=== PATIENT | male | born 1935 | race Caucasian/White ===

== ENCOUNTER 2016-07-24 19:14 | Emergency (ER) | payer OTHER ==
[~2016-07-24] VITALS: Ht 172.7 cm; Wt 81.4 kg
[~2016-07-24 19:14] MED LIST: ACCUPRIL40 MG PO; AMARYL1 MG PO; AMLODIPINE BESY10 MG PO; ASPIR 8181 M1 PO; B COMPLETE1 EACH PO; CELEXA20 MG PO; DICYCLOMINE HCL10 MG PO; DYAZIDE, MA1 CAPSULE PO; FLOMAX0.4 MG PO; FLOVENT 11120 INHALA IH; GEMFIBROZIL600 MG PO; HALOBETASOL PRO15 GM TP; LIPITOR40 MG PO; LIPITOR80 MG PO; METFORMIN HCL500 MG PO; MIRALAX17 GM PO; NAMENDA10 MG PO; NORVASC5 MG PO; NOVOLOG PE100 UNITS/ SC; PATANOL OP100 DROP/5 BOTH EYES; PRILOSEC20 MG PO; PROAIR HFA8.5 GM IH; PROVENTIL,2.5 MG/3 M IH; RAPAFLO8 MG PO; RIVASTIGMINE3 MG PO; ROBITUSSIN NIG118 ML PO; TESSALON PERLE100 MG PO; TYLENOL REGULA325 MG PO; ULTRAVATE PO; VENTOLIN HFA18 GM IH; VITAMIN D-32000 UNI2 PO; ZITHROMAX Z-PA250 MG PO; ZOFRAN8 MG PO
[2016-07-24] MEDS ORDERED: PREDNISONE20 MG PO (22:59)
[2016-07-24 23:23] VITALS: BP 135/74
== END 2016-07-24 23:21 | disposition home or self-care (01) ==
LOC: EME 19:14
PROC: 09Q0XZZ Repair Right External Ear, External Approach (ICD-10-PCS; principal; 2016-07-24)
DX: S09.90XA Unspecified injury of head, initial encounter (principal); J44.1 Chronic obstructive pulmonary disease with (acute) exacerbation; S01.311A Laceration without foreign body of right ear, initial encounter; W05.0XXA Fall from non-moving wheelchair, initial encounter; F03.90 Unspecified dementia, unspecified severity, without behavioral disturbance, psychotic disturbance, mood disturbance, and anxiety; E11.9 Type 2 diabetes mellitus without complications; E78.5 Hyperlipidemia, unspecified; I10 Essential (primary) hypertension; K21.9 Gastro-esophageal reflux disease without esophagitis; Z85.820 Personal history of malignant melanoma of skin
CPT/HCPCS: 70450; 71020; 94640; 99281; 99285; J7512

== ENCOUNTER 2017-04-29 20:12 | Emergency (ER) | payer OTHER ==
[~2017-04-29] VITALS: Ht 180.3 cm; Wt 83.8 kg
[~2017-04-29 20:12] MED LIST changes: +PREDNISONE20 MG PO
[2017-04-29 21:09] LABS: BASOPHIL (%) 0.8 % (0-1); BASOPHIL COUNT 0.1 K/uL (0-0.1); EOSINOPHIL (%) 6.2 % (0-5); EOSINOPHIL COUNT 0.5 K/uL (0-0.3); HEMATOCRIT 41.1 % (38.0-50.0); HEMOGLOBIN 14.4 G/DL (12.5-16.6); IMMATURE GRANULOCYTE (%) 1.1 % (0.0-0.7); LYMPHOCYTE (%) 18.8 % (15-42); LYMPHOCYTE COUNT 1.4 K/uL (1.0-2.8); MCH 32.4 PG (29.0-34.0); MCV 92.4 FL (86-99); MONOCYTE (%) 5.6 % (3-12); MONOCYTE COUNT 0.4 K/uL (0-0.8); NEUTROPHIL (%) 67.5 % (45-76); NEUTROPHIL COUNT 5.1 K/uL (1.8-6.4); PLATELET COUNT 174 K/uL (156-360); RBC DIS.WIDTH-SD 41.1 % (39-53); RED BLOOD COUNT 4.45 M/uL (4.00-5.50); WHITE BLOOD COUNT 7.6 K/uL (4.1-10.2)
[2017-04-29 21:14] LABS: CHLORIDE 99 mEq/L (99-109); POTASSIUM 4.1 mEq/L (3.7-5.4); SODIUM 133 mEq/L (136-147)
[2017-04-29 21:15] LABS: GLUCOSE 160 mg/dL (70-99)
[2017-04-29 21:19] LABS: CREATININE 1.1 mg/dL (0.6-1.3); GFR ESTIMATE (CALCULATED) > 59 mL/min/ (58.99-99999); PTT 24.9 SEC (25-37)
[2017-04-29 21:20] LABS: UREA NITROGEN (BUN) 20 mg/dL (9-23)
[2017-04-29 21:26] LABS: TROP-I INTERPRETATION NEGATIVE; TROPONIN-I < 0.01 ng/mL (0.0-0.30)
[2017-04-29 21:51] LABS: APPEARANCE SL.HAZY ((CLEAR)); BILIRUBIN NEGATIVE; BLOOD NEGATIVE; COLOR YELLOW ((YELLOW)); GLUCOSE (STRIP) >=500; KETONES NEGATIVE; LEUKOCYTES NEGATIVE; NITRITE NEGATIVE; PROTEIN (STRIP) 30; SPECIFIC GRAVITY 1.014 (1.000-1.030); UROBILINOGEN 0.2 MG/DL (0.2-1.0)
[2017-04-29 21:55] LABS: BACTERIA NONE SEEN /HPF; EPITHELIAL CELLS RARE /HPF; MUCUS TRACE /LPF; RED BLOOD CELLS 0-5 /HPF (0-5); UCUL ADDED? NO; WHITE BLOOD CELLS 0-5 /HPF (0-5)
[2017-04-29 23:58] VITALS: BP 117/85
== END 2017-04-29 23:58 | disposition home or self-care (01) ==
LOC: EME → EDBD 20:12 → EME 20:12
PROVIDERS: Emergency Medicine
DX: R56.9 Unspecified convulsions (principal); F03.90 Unspecified dementia, unspecified severity, without behavioral disturbance, psychotic disturbance, mood disturbance, and anxiety; K21.9 Gastro-esophageal reflux disease without esophagitis; I10 Essential (primary) hypertension; E11.9 Type 2 diabetes mellitus without complications; E78.5 Hyperlipidemia, unspecified; J45.909 Unspecified asthma, uncomplicated; Z79.84 Long term (current) use of oral hypoglycemic drugs; Z79.82 Long term (current) use of aspirin; Z85.820 Personal history of malignant melanoma of skin; Z90.49 Acquired absence of other specified parts of digestive tract; Z88.2 Allergy status to sulfonamides; Z88.8 Allergy status to other drugs, medicaments and biological substances
CPT/HCPCS: 70450; 71010; 80048; 81003; 84484; 85025; 85610; 85730; 93005; 99281; 99285; J2405; J7030